=== PATIENT | male | born 1980 ===

== ENCOUNTER 2017-01-15 15:41 | Emergency (ER) | payer MEDICAID ==
[2017-01-15 16:05] VITALS: BP 162/101; PULSE 80; RESP 18; TEMP 98.3; O2SAT 98
--- NOTE | 2017-01-15 16:24 | ED PDOC ---
Lower Extremity Pain/Injury Time Seen by Provider: 01/15/17 16:16 Chief Complaint (Nursing): Lower Extremity Problem/Injury Chief Complaint (Provider): Right Leg Pain History Per: Patient History/Exam Limitations: no limitations Onset/Duration Of Symptoms: Days (x3) Current Symptoms Are (Timing): Still Present Severity: Moderate Additional Complaint(s): Juve Mccracken is a 36 year old male, with no pertinent past medical history, who presents to the ED on 01/15/17 for the evaluation of a moderate amount of atraumatic right leg pain that he has experienced x3 days. Pain, worse with sitting, is reportedly localized to the posterior hamstring with radiation down into the remainder of the leg. Associated mild feelings of tingling also reported in his right foot/toes. Denies abdominal pain, vomiting, shortness of breath, dysuria, hematuria, incontinence, saddle anesthesia or previous history of back injury. Capable of unassisted ambulation. 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 PMD: Kenyatta Weiss Past Medical History Reviewed: Historical Data, Nursing Documentation, Vital Signs Vital Signs: Last Vital Signs Temp 98.3 F 01/15/17 16:04 Pulse 80 01/15/17 16:04 Resp 18 01/15/17 16:04 BP 162/101 H 01/15/17 16:04 Pulse Ox 98 01/15/17 16:04 - Medical History PMH: No Chronic Diseases Denies: Back Problems - Surgical History Surgical History: No Surg Hx - Family History Family History: States: Unknown Family Hx - Home Medications Home Medications: Ambulatory Orders Medication Instructions Recorded Acetaminophen/Hydrocodone Bi 1 tab PO Q4 PRN #15 tab 11/15/14 [Vicodin 300 mg-5 mg] Naproxen [Naprosyn] 500 mg PO BID #20 tab 11/15/14 Tizanidine Hydrochloride 4 mg PO Q6 PRN #20 tab 11/15/14 [Tizanidine HCl] Cyclobenzaprine [Cyclobenzaprine 10 mg PO BID #14 tab 01/15/17 HCl] Ibuprofen [Motrin] 400 mg PO Q6 #30 tab 01/15/17 - Allergies Allergies/Adverse Reactions: Allergies Allergy/AdvReac Type Severity Reaction Status Date / Time No Known Allergies Allergy Verified 01/15/17 16:03 Review of Systems Respiratory: Negative for: Shortness of Breath Gastrointestinal: Positive for: Nausea (mild). Negative for: Vomiting, Abdominal Pain Genitourinary Male: Negative for: Dysuria, Incontinence, Hematuria Musculoskeletal: Positive for: Leg Pain (posterior right leg) Neurological: Positive for: Numbness (tingling within right foot; no saddle anesthesia). Negative for: Weakness Physical Exam - Reviewed Nursing Documentation Reviewed: Yes Vital Signs Reviewed: Yes - Physical Exam Appears: Positive for: Non-toxic, No Acute Distress Gastrointestinal/Abdominal: Positive for: Normal Exam, Soft. Negative for: Tenderness Back: Positive for: Normal Inspection. Negative for: Vertebral Tenderness, Other ((-) straight leg raise b/l) Extremity: Positive for: Normal ROM. Negative for: Tenderness (right leg nontender to palpation), Calf Tenderness, Deformity Neurologic/Psych: Positive for: Alert, Oriented. Negative for: Motor/Sensory Deficits - ECG O2 Sat by Pulse Oximetry: 98 (RA) Pulse Ox Interpretation: Normal Medical Decision Making Medical Decision Makin:16 Initial Impression: sciatica Initial Plan: * Toradol 30mg IM * Reevaluation Scribe Attestation: Documented by Morena Lezama, acting as a scribe for Crystal Lombardo PA-C. Provider Scribe Attestation: All medical record entries made by the Scribe were at my direction and personally dictated by me. I have reviewed the chart and agree that the record accurately reflects my personal performance of the history, physical exam, medical decision making, and the department course for this patient. I have also personally directed, reviewed, and agree with the discharge instructions and disposition. Disposition - Clinical Impression Clinical Impression: Back pain - Patient ED Disposition Is Patient to be Admitted: No Counseled Patient/Family Regarding: Diagnosis, Need For Followup, Rx Given - Disposition Referrals: [facility] [Outside] Disposition: Routine/Home Disposition Time: 17:02 Condition: STABLE Prescriptions: Cyclobenzaprine [Cyclobenzaprine HCl] 10 mg PO BID #14 tab Ibuprofen [Motrin] 400 mg PO Q6 #30 tab Instructions: Back Pain (ED), Sciatica (ED), Lumbar Radiculopathy (ED), Back Exercises (ED) Forms: [facility] ED School/Work Excuse
== END 2017-01-15 17:30 | disposition home or self-care (01) ==
LOC: H.ER 15:41
DX: M54.9 Dorsalgia, unspecified (principal)

== ENCOUNTER 2018-07-26 01:58 | Emergency (ER) | payer MEDICAID ==
[2018-07-26 02:49] VITALS: BP 138/85; PULSE 78; RESP 16; TEMP 97.8; O2SAT 98
--- NOTE | 2018-07-26 04:01 | ED PDOC ---
HPI: Back Time Seen by Provider: 07/26/18 03:07 Chief Complaint (Nursing): Lower Extremity Problem/Injury History Per: Patient History/Exam Limitations: no limitations Onset/Duration Of Symptoms: Days Current Symptoms Are (Timing): Better Quality Of Discomfort: Aching Additional Complaint(s): Obese M with no PMHx presenting with lower back pain, states its worse with movement and getting up. States it radiates from the L Lower back down L side. Denies R sided pain. Denies numbness, weakness, change in bowel or bladder habit. Does not followup with any primary care. Past Medical History Reviewed: Historical Data, Nursing Documentation, Vital Signs Vital Signs: Last Vital Signs Temp 97.8 F 07/26/18 02:46 Pulse 78 07/26/18 02:46 Resp 16 07/26/18 02:46 BP 138/85 07/26/18 02:46 Pulse Ox 98 07/26/18 02:46 - Medical History PMH: Denies: Back Problems, Kidney Stones, Chronic Kidney Disease - Family History Family History: States: Unknown Family Hx - Immunization History Hx Tetanus Toxoid Vaccination: No - Home Medications Home Medications: Ambulatory Orders Medication Instructions Recorded Acetaminophen/Hydrocodone Bi 1 tab PO Q4 PRN #15 tab 11/15/14 [Vicodin 300 mg-5 mg] Naproxen [Naprosyn] 500 mg PO BID #20 tab 11/15/14 Tizanidine Hydrochloride 4 mg PO Q6 PRN #20 tab 11/15/14 [Tizanidine HCl] Cyclobenzaprine [Cyclobenzaprine 10 mg PO BID #14 tab 01/15/17 HCl] Ibuprofen [Motrin] 400 mg PO Q6 #30 tab 01/15/17 Cyclobenzaprine [Cyclobenzaprine 10 mg PO BID #15 tab 07/26/18 HCl] Ketorolac Tromethamine [Toradol] 10 mg PO BID #20 tab 07/26/18 Lidocaine 1 each TP DAILY #10 adh..patch 07/26/18 - Allergies Allergies/Adverse Reactions: Allergies Allergy/AdvReac Type Severity Reaction Status Date / Time No Known Allergies Allergy Verified 01/15/17 16:03 Review of Systems ROS Statement: Except As Marked, All Systems Reviewed And Found Negative Musculoskeletal: Positive for: Back Pain Physical Exam - Reviewed Nursing Documentation Reviewed: Yes Vital Signs Reviewed: Yes - Physical Exam Appears: Positive for: Well, Non-toxic, No Acute Distress Head Exam: Positive for: ATRAUMATIC, NORMAL INSPECTION, NORMOCEPHALIC Skin: Positive for: Normal Color, Warm, DRY Eye Exam: Positive for: EOMI, Normal appearance, PERRL ENT: Positive for: Normal ENT Inspection Neck: Positive for: Normal, Painless ROM Cardiovascular/Chest: Positive for: Regular Rate, Rhythm Respiratory: Positive for: CNT, Normal Breath Sounds Gastrointestinal/Abdominal: Positive for: Normal Exam, Soft Back: Positive for: Muscle Spasm, Other (L paraverterbral musculature tenderness). Negative for: Vertebral Tenderness, Decreased ROM Extremity: Positive for: Normal ROM Neurologic/Psych: Positive for: Alert, gastroenterology technician II-XII, Oriented. Negative for: Motor/Sensory Deficits - ECG O2 Sat by Pulse Oximetry: 98 Pulse Ox Interpretation: Normal Medical Decision Making Medical Decision Making: Patient presenting with lower back pain, worse with initiation of movement. --Most likely musculoskeletal, not concerned for cord impingement syndrome, AAA, or other serious pathology --Will treat with NSAID, muscle relaxant --Will refer to clinic --Strongly encouraged followup with PMD Disposition - Clinical Impression Clinical Impression: Sciatica of left side - Patient ED Disposition Is Patient to be Admitted: No - Disposition Referrals: [facility] [Outside] Disposition: Routine/Home Disposition Time: 04:03 Condition: IMPROVED Prescriptions: Cyclobenzaprine [Cyclobenzaprine HCl] 10 mg PO BID #15 tab Ketorolac Tromethamine [Toradol] 10 mg PO BID #20 tab Lidocaine 1 each TP DAILY #10 adh..patch Instructions: Sciatica, Sciatica Exercises
--- NOTE | 2018-07-26 11:45 | RAD ---
Date of service: 07/26/2018 PROCEDURE: Radiographs of the Lumbar Spine. HISTORY: lower back pain COMPARISON: No prior. FINDINGS: BONES: Normal alignment. No listhesis. No fracture. DISC SPACES: Unremarkable. OTHER FINDINGS: None. IMPRESSION: Unremarkable radiographs of the lumbar spine.
== END 2018-07-26 04:07 | disposition home or self-care (01) ==
LOC: H.ER 01:58
DX: M54.32 Sciatica, left side (principal)
CPT/HCPCS: 72114; 96372; 99283; J1885